=== PATIENT | male | born 1990 | race Caucasian/White ===

== ENCOUNTER 2024-03-22 12:51 | Emergency (ER) | payer SELFPAY ==
[2024-03-22] VITALS (7 sets, daily range): BP systolic 149–165; BP diastolic 93–116
[~2024-03-22] VITALS: Ht 172.7 cm; Wt 113.0 kg
[2024-03-22] MEDS ORDERED: ORPHENADRINE CITRATE 30 MG/ML AMP IM ONE (13:10)
[2024-03-22] MEDS ORDERED: KETOROLAC TROMETHAMINE 30 MG/ML SDV IM ONE (13:10)
[2024-03-22] MEDS ORDERED: predniSONE 20 MG/TAB PO ONE (13:10)
[2024-03-22 14:09] LABS: BASO% 0.2 % (0-3); EOS% 5.2 % (0-8); HEMATOCRIT 42.8 % (39.0-50.0); HEMOGLOBIN 14.4 g/dl (14.0-18.0); IMMATURE GRANULOCYTES 0.1 % (0.0-5.0); LYMPH% 25.1 % (15-41); MEAN CELL VOLUME 90.1 fL CALC (80.0-100.0); MEAN CORPUSCULAR HGB 30.3 pG CALC (26.0-32.0); MEAN CORPUSCULAR HGB CONC 33.6 g/dL CAL (32.0-36.0); MONO% 19.7 % (2-13); NEUT# 4.2 thou/uL (1.82-7.42); NEUT% 49.7 % (42-76); RED BLOOD COUNT 4.75 mill/uL (4.70-6.10); RED CELL DISTRI WIDTH 12.4 % (11.5-15.5)
[2024-03-22] MEDS ORDERED: LOSARTAN Potassium 25 MG/TAB PO ONE (14:20)
[2024-03-22 14:24] LABS: ALBUMIN 4.4 g/dL (3.2-5.0); BILIRUBIN, TOTAL 0.5 mg/dL (0.2-1.3); TOTAL PROTEIN 7.9 g/dL (6.3-8.2)
[2024-03-22] MEDS ORDERED: MEDDOSEPAK PO (15:14)
[2024-03-22] MEDS ORDERED: METHOCARBAMOL500 MG PO (15:14)
[2024-03-22] MEDS ORDERED: COZAAR25 MG PO (15:14)
== END 2024-03-22 15:32 | disposition home or self-care (01) | DRG 179 ==
LOC: ED 12:51
PROVIDERS: Nurse Practitioner
DX: U07.1 COVID-19 (principal); R52 Pain, unspecified; R19.7 Diarrhea, unspecified; R50.9 Fever, unspecified; M54.2 Cervicalgia; R05.9 Cough, unspecified; R09.81 Nasal congestion; I10 Essential (primary) hypertension; T46.5X6A Underdosing of other antihypertensive drugs, initial encounter; Z91.128 Patient's intentional underdosing of medication regimen for other reason

== ENCOUNTER 2024-03-31 17:23 | Emergency (ER) | payer SELFPAY ==
[2024-03-31] VITALS (8 sets, daily range): BP systolic 125–140; BP diastolic 68–84
[~2024-03-31] VITALS: Ht 172.7 cm; Wt 114.3 kg
[~2024-03-31 17:23] MED LIST: COZAAR25 MG PO; MEDDOSEPAK PO; METHOCARBAMOL500 MG PO
[2024-03-31] MEDS ORDERED: MOTRIN800 MG PO (18:54)
== END 2024-03-31 19:07 | disposition home or self-care (01) | DRG 563 ==
LOC: ED 17:23
DX: S93.402A Sprain of unspecified ligament of left ankle, initial encounter (principal); I10 Essential (primary) hypertension; X50.0XXA Overexertion from strenuous movement or load, initial encounter; Y93.89 Activity, other specified; Y99.0 Civilian activity done for income or pay

== ENCOUNTER 2024-04-10 18:34 | Emergency (ER) | payer SELFPAY ==
[~2024-04-10] VITALS: Ht 172.7 cm; Wt 113.6 kg
[~2024-04-10 18:34] MED LIST changes: +MOTRIN800 MG PO
[2024-04-10 19:02] VITALS: BP 207/126
[2024-04-10] MEDS ORDERED: KETOROLAC TROMETHAMINE 30 MG/ML SDV IM ONE (19:05)
[2024-04-10 19:11] VITALS: BP 164/101
[2024-04-10] MEDS ORDERED: TORADOL PO (19:14)
[2024-04-10] MEDS ORDERED: AMOX-POT CLA PO (19:14)
[2024-04-10 19:15] VITALS: BP 153/94
[2024-04-10 19:31] VITALS: BP 150/95
[2024-04-10 19:39] VITALS: BP 150/95
== END 2024-04-10 19:39 | disposition home or self-care (01) | DRG 552 ==
LOC: ED 18:34
DX: M53.3 Sacrococcygeal disorders, not elsewhere classified (principal); I10 Essential (primary) hypertension